=== PATIENT | male | born 1945 | race Caucasian/White ===

== ENCOUNTER 2021-08-29 14:25 | Inpatient (IN) | payer MEDICARE ==
[2021-08-29 14:55] LABS: #Basophils 0.1 thou/uL (0.0-0.2); #Eosinphils 0.2 thou/uL (0.0-0.7); #Lymphocytes 1.1 thou/uL (1.20-3.40); #Monocytes 0.7 thou/uL (0.11-0.59); #Neutrophils 7.3 thou/uL (1.40-6.50); %Basophils 0.6 % (0.0-1.0); %Eosinophils 2.6 % (0.0-10.0); %Lymphocytes 11.4 % (21.0-51.0); %Monocytes 7.6 % (0.0-10.0); %Neutrophils 77.8 % (42.0-75.0); Hemoglobin 17.9 g/dL (14.0-18.0); Mean Corpuscular HGB CONC 31.9 g/dL (32.0-36.0); Mean Corpuscular Hemoglobin 30.9 pg (27.0-31.0); Mean Corpuscular Volume 96.8 fL (78.0-98.0); Mean Platelet Volume 7.8 fL (7.4-10.4); Platelet Count 193 thou/uL (130-400); RBC Distribution Width 13.9 % (11.5-14.5); Red Blood Cell (RBC) Count 5.79 mill/uL (4.70-6.10); White Blood Cell (WBC) Count 9.3 thou/uL (4.8-10.8)
[2021-08-29 15:18] LABS: ALT (SGPT) 11 U/L (8-55); AST (SGOT) 15 U/L (5-34); Alkaline Phosphatase 70 U/L (40-110); Anion Gap 15 mmol/L (10-20); BUN (Urea Nitrogen) 13 mg/dL (8.4-25.7); Bilirubin, Total 0.5 mg/dL (0.2-1.2); Calc. Creatinine Clearance 0 mL/min (70-130); Calcium 9.7 mg/dL (7.8-10.44); Carbon Dioxide 26 mmol/L (23-31); Chloride 104 mmol/L (98-107); Estimated GFR 90; Globulin 3.3 g/dL (2.4-3.5); Glucose 111 mg/dL (83-110); Potassium 4.2 mmol/L (3.5-5.1); Protein, Total 7.3 g/dL (5.8-8.1); Sodium 141 mmol/L (136-145)
[2021-08-29 15:35] LABS: Bilirubin Negative (Negative); Blood, Urine Negative (Negative); Clarity Clear (Clear); Glucose, Urine (Dipstick) Normal (Negative); Ketone, Urine Negative (Negative); Leukocyte Negative Leu/uL (Negative); Nitrite Negative (Negative); Protein, Urine (Dipstick) Negative (Neg-Trace); Specific Gravity, Urine 1.018 (1.002-1.036); Urobilinogen Normal mg/dL (Less than 2)
[2021-08-29] MEDS ORDERED: Magnesium 2 GM/50 ML BAG (IN WATER) ONE (16:39)
[2021-08-29] MEDS ORDERED: methylPREDNISolone Sod Succ/PF 125 MG/2 ML VIAL ONE (16:40)
[2021-08-29] MEDS ORDERED: Ondansetron ODT 4 MG TAB PO PRN (17:22)
[2021-08-29] MEDS ORDERED: Senokot S 8.6-50 MG TAB PO PRN (17:22)
[2021-08-29] MEDS ORDERED: Acetaminophen 325 MG TAB PO PRN (17:22)
[2021-08-29] MEDS ORDERED: Bisacodyl 10 MG SUPP PR PRN (17:22)
[2021-08-29] MEDS ORDERED: Ondansetron PF 4 MG/2 ML Vial IVP PRN (17:22)
[2021-08-29] MEDS ORDERED: Bisacodyl 5 MG TAB PO PRN (17:22)
[2021-08-29] MEDS ORDERED: Azithromycin 500 MG VIAL ONE (17:49)
[2021-08-29] MEDS ORDERED: Simethicone Chewable 80 MG TAB PO PRN (18:47)
[2021-08-29 20:13] LABS: SARS-CoV-2 NAA Rapid Test Not Detected (NotDetected)
[2021-08-29] MEDS ORDERED: Carvedilol 25 MG TAB PO SCH (21:00)
[2021-08-29 22:26] VITALS: BMI 37.3
[2021-08-29] MEDS: Tamsulosin HCl 0.4 MG CAP PO SCH (23:01)
[2021-08-30 04:16] LABS: #Lymphocytes 0.5 thou/uL (1.20-3.40); #Monocytes 0.1 thou/uL (0.11-0.59); #Neutrophils 6.5 thou/uL (1.40-6.50); %Basophils 0.1 % (0.0-1.0); %Eosinophils 0.2 % (0.0-10.0); %Lymphocytes 7.4 % (21.0-51.0); %Monocytes 0.7 % (0.0-10.0); %Neutrophils 91.7 % (42.0-75.0); Hemoglobin 17.7 g/dL (14.0-18.0); Mean Corpuscular HGB CONC 30.3 g/dL (32.0-36.0); Mean Corpuscular Hemoglobin 29.8 pg (27.0-31.0); Mean Corpuscular Volume 98.3 fL (78.0-98.0); Mean Platelet Volume 7.7 fL (7.4-10.4); Platelet Count 182 thou/uL (130-400); RBC Distribution Width 14.2 % (11.5-14.5); Red Blood Cell (RBC) Count 5.95 mill/uL (4.70-6.10)
[2021-08-30 04:40] LABS: Anion Gap 14 mmol/L (10-20); BUN (Urea Nitrogen) 17 mg/dL (8.4-25.7); Calc. Creatinine Clearance 121 mL/min (70-130); Calcium 9.4 mg/dL (7.8-10.44); Carbon Dioxide 28 mmol/L (23-31); Chloride 105 mmol/L (98-107); Estimated GFR 90; Glucose 162 mg/dL (83-110); Potassium 4.7 mmol/L (3.5-5.1); Sodium 142 mmol/L (136-145)
[2021-08-30] MEDS: Mometasone 200 MCG/Formoterol 5 MCG 120 PUFF INHALER INH SCH ×2 (09:08→19:40)
[2021-08-30] MEDS: Fenofibrate Nanocrystallized 145 MG TAB PO SCH (09:11)
[2021-08-30] MEDS: Carvedilol 25 MG TAB PO SCH ×2 (09:11→16:08)
[2021-08-30] MEDS: Amlodipine 10 MG TAB PO SCH (09:11)
[2021-08-30] MEDS: Losartan 25 MG TAB PO SCH (09:12)
[2021-08-30] MEDS: Enoxaparin Sodium 40 MG/0.4 ML SYRINGE SC SCH (09:13)
[2021-08-30] MEDS: Tamsulosin HCl 0.4 MG CAP PO SCH ×2 (09:13→20:38)
[2021-08-30] MEDS: Multivit, Therapeutic 1 TAB PO SCH (09:13)
[2021-08-30] MEDS: predniSONE 20 MG TAB PO SCH (09:24)
[2021-08-30] MEDS: Fluticasone Propionate Nasal Spray 16 gm Bottle NASAL SCH (11:27)
[2021-08-31 04:12] LABS: #Lymphocytes 1.2 thou/uL (1.20-3.40); #Monocytes 0.9 thou/uL (0.11-0.59); #Neutrophils 11.1 thou/uL (1.40-6.50); %Basophils 0.2 % (0.0-1.0); %Eosinophils 0.1 % (0.0-10.0); %Lymphocytes 8.7 % (21.0-51.0); %Monocytes 6.9 % (0.0-10.0); Hemoglobin 16.2 g/dL (14.0-18.0); Mean Corpuscular HGB CONC 30.6 g/dL (32.0-36.0); Mean Corpuscular Hemoglobin 30.2 pg (27.0-31.0); Mean Corpuscular Volume 98.8 fL (78.0-98.0); Mean Platelet Volume 7.9 fL (7.4-10.4); Platelet Count 176 thou/uL (130-400); Red Blood Cell (RBC) Count 5.37 mill/uL (4.70-6.10); White Blood Cell (WBC) Count 13.2 thou/uL (4.8-10.8)
[2021-08-31 04:33] LABS: Anion Gap 9 mmol/L (10-20); BUN (Urea Nitrogen) 21 mg/dL (8.4-25.7); Calc. Creatinine Clearance 132 mL/min (70-130); Calcium 8.7 mg/dL (7.8-10.44); Carbon Dioxide 32 mmol/L (23-31); Chloride 103 mmol/L (98-107); Estimated GFR 92; Glucose 119 mg/dL (83-110); Potassium 4.4 mmol/L (3.5-5.1); Sodium 140 mmol/L (136-145)
[2021-08-31] MEDS: Mometasone 200 MCG/Formoterol 5 MCG 120 PUFF INHALER INH SCH ×2 (07:21→19:26)
[2021-08-31] MEDS: Tamsulosin HCl 0.4 MG CAP PO SCH ×2 (09:49→21:00)
[2021-08-31] MEDS: predniSONE 20 MG TAB PO SCH (09:49)
[2021-08-31] MEDS: Enoxaparin Sodium 40 MG/0.4 ML SYRINGE SC SCH (09:49)
[2021-08-31] MEDS: Fenofibrate Nanocrystallized 145 MG TAB PO SCH (09:49)
[2021-08-31] MEDS: Multivit, Therapeutic 1 TAB PO SCH (09:49)
[2021-08-31] MEDS: Amlodipine 10 MG TAB PO SCH (09:49)
[2021-08-31] MEDS: Losartan 25 MG TAB PO SCH (09:50)
[2021-08-31] MEDS: Carvedilol 25 MG TAB PO SCH ×2 (09:50→16:49)
[2021-08-31] MEDS: Fluticasone Propionate Nasal Spray 16 gm Bottle NASAL SCH (10:10)
[2021-09-01 06:45] LABS: #Eosinphils 0.1 thou/uL (0.0-0.7); #Lymphocytes 1.4 thou/uL (1.20-3.40); #Monocytes 0.8 thou/uL (0.11-0.59); #Neutrophils 8.2 thou/uL (1.40-6.50); %Basophils 0.4 % (0.0-1.0); %Eosinophils 0.7 % (0.0-10.0); %Lymphocytes 13.3 % (21.0-51.0); %Monocytes 7.3 % (0.0-10.0); %Neutrophils 78.4 % (42.0-75.0); Hemoglobin 17.4 g/dL (14.0-18.0); Mean Corpuscular HGB CONC 32.2 g/dL (32.0-36.0); Mean Corpuscular Hemoglobin 31.2 pg (27.0-31.0); Mean Corpuscular Volume 96.9 fL (78.0-98.0); Platelet Count 169 thou/uL (130-400); RBC Distribution Width 13.7 % (11.5-14.5); Red Blood Cell (RBC) Count 5.56 mill/uL (4.70-6.10); White Blood Cell (WBC) Count 10.5 thou/uL (4.8-10.8)
[2021-09-01] MEDS: Mometasone 200 MCG/Formoterol 5 MCG 120 PUFF INHALER INH SCH (06:51)
[2021-09-01 07:11] LABS: Anion Gap 12 mmol/L (10-20); BUN (Urea Nitrogen) 17 mg/dL (8.4-25.7); Calc. Creatinine Clearance 138 mL/min (70-130); Calcium 9.1 mg/dL (7.8-10.44); Carbon Dioxide 32 mmol/L (23-31); Chloride 100 mmol/L (98-107); Estimated GFR 94; Glucose 83 mg/dL (83-110); Potassium 4.1 mmol/L (3.5-5.1); Sodium 140 mmol/L (136-145)
[2021-09-01 08:03] VITALS: BP 132/78; TEMP 98.2
[2021-09-01] MEDS: Enoxaparin Sodium 40 MG/0.4 ML SYRINGE SC SCH (08:13)
[2021-09-01] MEDS: Fenofibrate Nanocrystallized 145 MG TAB PO SCH (08:13)
[2021-09-01] MEDS: predniSONE 20 MG TAB PO SCH (08:13)
[2021-09-01] MEDS: Amlodipine 10 MG TAB PO SCH (08:14)
[2021-09-01] MEDS: Multivit, Therapeutic 1 TAB PO SCH (08:14)
[2021-09-01] MEDS: Losartan 25 MG TAB PO SCH (08:14)
[2021-09-01] MEDS: Carvedilol 25 MG TAB PO SCH (08:14)
[2021-09-01] MEDS: Tamsulosin HCl 0.4 MG CAP PO SCH (08:14)
== END 2021-09-01 16:42 | disposition home or self-care (01) | DRG 189 ==
LOC: ERS 14:25 → 2NO 17:10 → T4-A 08-31 17:01
PROVIDERS: ADMIT Student in an Organized Health Care Education/Training Program; ATTEND Family Medicine
DX: J96.21 Acute and chronic respiratory failure with hypoxia (principal); Z66 Do not resuscitate; Z20.822 Contact with and (suspected) exposure to COVID-19; J44.1 Chronic obstructive pulmonary disease with (acute) exacerbation; R01.1 Cardiac murmur, unspecified; L72.8 Other follicular cysts of the skin and subcutaneous tissue; I10 Essential (primary) hypertension; E78.5 Hyperlipidemia, unspecified; R73.03 Prediabetes; T38.0X5A Adverse effect of glucocorticoids and synthetic analogues, initial encounter; D72.829 Elevated white blood cell count, unspecified; Z91.011 Allergy to milk products; Z88.5 Allergy status to narcotic agent; Z91.018 Allergy to other foods; Z79.899 Other long term (current) drug therapy; Z79.52 Long term (current) use of systemic steroids; Z90.49 Acquired absence of other specified parts of digestive tract; Z87.891 Personal history of nicotine dependence
CPT/HCPCS: 36415; 71045; 80048; 80053; 81003; 83880; 84145; 84484; 85025; 93005; 94640; 96365; 96366; 96367; 96375; J0456; J1650; J2930; J3475; J7512; J7620; U0002